=== PATIENT | female | born 1935 | race Caucasian/White ===

== ENCOUNTER 2022-01-12 08:50 | Emergency (ER) | payer MEDICARE, OTHER ==
[~2022-01-12] VITALS: Ht 160 cm; Wt 86.4 kg
[2022-01-12 11:10] VITALS: BP 142/69
[2022-01-12] MEDS ORDERED: DICL20GE TP (11:24)
== END 2022-01-12 11:54 | disposition home or self-care (01) ==
LOC: ER 08:50
DX: M75.22 Bicipital tendinitis, left shoulder (principal); M19.012 Primary osteoarthritis, left shoulder; R20.0 Anesthesia of skin; M25.531 Pain in right wrist; M75.102 Unspecified rotator cuff tear or rupture of left shoulder, not specified as traumatic; Z79.899 Other long term (current) drug therapy
CPT/HCPCS: 29125; 29240; 29260; 73030; 99283

== ENCOUNTER 2022-09-04 09:11 | Inpatient (IN) | payer MEDICARE, OTHER, MEDICAID ==
[~2022-09-04] VITALS: Ht 160 cm; Wt 81.0 kg
[~2022-09-04 09:11] MED LIST: DICL20GE TP
[2022-09-04 09:45] LABS: BASOPHILS # (AUTO) 0.1 X10'3 (0-0.2); BASOPHILS % (AUTO) 0.8 % (0-1); EOSINOPHILS % (AUTO) 0.1 % (0-6); HEMOGLOBIN 10.9 g/dl (12.0-16.0); LYMPHOCYTES # (AUTO) 1.2 X10'3 (1.1-4.8); LYMPHOCYTES % (AUTO) 10.8 % (21-51); MEAN CORPUSCULAR HEMOGLOBIN 32.9 PG (27.0-31.0); MEAN CORPUSCULAR VOLUME 99.6 FL (78-98); MEAN PLATELET VOLUME 7.5 FL (7.4-10.4); MONOCYTES # (AUTO) 0.8 X10'3 (0-0.9); MONOCYTES % (AUTO) 7.9 % (2-12); NEUTROPHILS # (AUTO) 8.6 X10'3 (1.8-7.7); NEUTROPHILS % (AUTO) 80.4 % (42-75); PLATELET COUNT 278 X10'3 (140-440); RED BLOOD COUNT 3.31 X10'6 (4.20-5.60); RED CELL DISTRIBUTION WIDTH 16.6 % (11.5-14.5); WHITE BLOOD COUNT 10.7 X10'3 (4.5-11.0)
[2022-09-04 10:07] LABS: ALANINE AMINOTRANSFERASE 21 U/L (12-78); ALBUMIN 3.7 G/DL (3.4-5.0); ALBUMIN/GLOBULIN RATIO 1.1 (1.1-1.5); ALKALINE PHOSPHATASE 67 IU/L (46-116); ANION GAP 12 (8-16); ASPARTATE AMINO TRANSFERASE 22 U/L (10-37); BILIRUBIN,TOTAL 1.2 MG/DL (0.1-1.0); BLOOD UREA NITROGEN 32 MG/DL (7-18); BUN/CREATININE RATIO 28.1 (6.6-38.0); CALCIUM 9.5 MG/DL (8.5-10.1); CHLORIDE 97 MMOL/L (99-107); CREATININE 1.14 MG/DL (0.40-0.90); GLUCOSE 111 MG/DL (70-104); LIPASE 68 U/L (73-393); POTASSIUM 3.9 MMOL/L (3.5-5.1); SODIUM 138 MMOL/L (135-145); TOTAL CARBON DIOXIDE 29.3 MMOL/L (24-32); TOTAL PROTEIN 7.1 G/DL (6.4-8.2); eGFR 45 ML/MIN
[2022-09-04] MEDS ORDERED: famotidine/PF 10 mg/ml inj IV ONE (10:45)
[2022-09-04] MEDS ORDERED: normal saline 1000ML IV soln IV ONE (10:45)
[2022-09-04] MEDS ORDERED: ondansetron/PF 4mg/2ml inj IV ONE (10:45)
[2022-09-04] MEDS ORDERED: piperacillin/tazo 3.375gm/50ml 50 ML IV ONE (11:55)
[2022-09-04] MEDS ORDERED: LIDOcaine 2% 10ml TOPICAL JELLY (Urojet) MM ONE ×2 (12:05→22:36)
[2022-09-04] MEDS ORDERED: FURO40TA4 PO (12:41)
[2022-09-04] MEDS ORDERED: METO-395 PO (12:41)
[2022-09-04] MEDS ORDERED: POTA10CA45 PO (12:41)
[2022-09-04] MEDS ORDERED: SPIR100T5 PO (12:41)
[2022-09-04] MEDS ORDERED: LORazepam 2 mg/ml vial IV ONE (13:25)
[2022-09-04] MEDS ORDERED: mag hydrox/Alum hydrox/simeth 30ml oral suspension PO PRN (13:30)
[2022-09-04] MEDS ORDERED: acetaminophen 325mg tablet PO PRN ×2 (13:30)
[2022-09-04] MEDS ORDERED: morphine 2 MG/ML inj. syringe IV PRN (13:30)
[2022-09-04] MEDS ORDERED: magnesium hydroxide 30ml (MOM) UD suspension PO PRN (13:30)
[2022-09-04] MEDS: dextrose 5%-1/2 normal saline 1,000 ML IV SCH (14:12)
[2022-09-04] MEDS: docusate sod 100mg capsule PO SCH (19:03)
[2022-09-04] MEDS: morphine 2 MG/ML inj. syringe IV PRN (21:29)
[2022-09-04] MEDS: ondansetron/PF 4mg/2ml inj IV PRN (21:30)
[2022-09-04 21:46] LABS: CLARITY,URINE CLOUDY (Clear); COLOR,URINE YELLOW (Yellow); GLUCOSE, URINE NEGATIVE (Neg); KETONES,URINE 15 mg/dl (Neg); LEUKOCYTE ESTERASE ,URINE NEGATIVE (Neg); NITRITES, URINE NEGATIVE (Neg); OCCULT BLOOD,URINE SMALL (Neg); PROTEIN,URINE NEGATIVE (Neg)
[2022-09-04 21:55] LABS: UA COLLECTION TYPE CLN CATCH MIDSTREAM
[2022-09-04 22:00] LABS: AMORPHOUS URATES 1+; BACTERIA,URINE 3+ /HPF (Neg); MUCUS STRANDS FEW /LPF (Neg); SQUAMOUS EPITHELIAL CELL,UR FEW /LPF (FEW); TRANSITIONAL EPI CELLS,URINE FEW /HPF; URIC ACID CRYSTALS FEW /HPF (NEGATIVE)
[2022-09-05] MEDS: dextrose 5%-1/2 normal saline 1,000 ML IV SCH ×3 (02:50→17:10)
[2022-09-05] MEDS: docusate sod 100mg capsule PO SCH ×2 (07:07→19:26)
[2022-09-05 07:24] VITALS: BP 140/72
[2022-09-05 09:25] LABS: ALBUMIN 2.9 G/DL (3.4-5.0); BLOOD UREA NITROGEN 25 MG/DL (7-18); BUN/CREATININE RATIO 26.6 (6.6-38.0); CALCIUM 8.1 MG/DL (8.5-10.1); CHLORIDE 104 MMOL/L (99-107); CREATININE 0.94 MG/DL (0.40-0.90); GLUCOSE 112 MG/DL (70-104); POTASSIUM 3.4 MMOL/L (3.5-5.1); TOTAL CARBON DIOXIDE 26.7 MMOL/L (24-32); eGFR 56 ML/MIN
[2022-09-05 09:28] LABS: ANION GAP 5 (8-16); SODIUM 136 MMOL/L (135-145)
--- NOTE | 2022-09-05 09:35 | NUR ---
MD aware of low potassium of 3.4 no new orders at this time
[2022-09-05 10:00] VITALS: BP 132/55
[2022-09-05 10:09] LABS: BASOPHILS % (AUTO) 0.6 % (0-1); EOSINOPHILS # (AUTO) 0.1 X10'3 (0-0.9); EOSINOPHILS % (AUTO) 1.7 % (0-6); HEMATOCRIT 28.5 % (35.0-45.0); HEMOGLOBIN 9.6 g/dl (12.0-16.0); LYMPHOCYTES # (AUTO) 0.9 X10'3 (1.1-4.8); LYMPHOCYTES % (AUTO) 12.5 % (21-51); MEAN CORPUSCULAR HEMOGLOBIN 33.6 PG (27.0-31.0); MEAN CORPUSCULAR HGB CONC 33.6 g/dL (33.0-36.5); MEAN CORPUSCULAR VOLUME 99.9 FL (78-98); MEAN PLATELET VOLUME 7.2 FL (7.4-10.4); MONOCYTES # (AUTO) 0.9 X10'3 (0-0.9); MONOCYTES % (AUTO) 11.7 % (2-12); NEUTROPHILS # (AUTO) 5.5 X10'3 (1.8-7.7); NEUTROPHILS % (AUTO) 73.5 % (42-75); PLATELET COUNT 205 X10'3 (140-440); RED BLOOD COUNT 2.85 X10'6 (4.20-5.60); RED CELL DISTRIBUTION WIDTH 16.5 % (11.5-14.5); WHITE BLOOD COUNT 7.5 X10'3 (4.5-11.0)
--- NOTE | 2022-09-05 16:18 | NUR ---
Malnutrition consult: Pt unsure of wt loss though with decreased appetite per malnutrition risk screen with RN. Multiple attempted visits with pt at bedside however pt sleeping. Per EMR pt with documented wt h/o 86.36 kg 01/12/22 though no documentation of how wt was obtained. Current scaled wt is 81 kg. If previous wt hx in accurate this would be non-significant wt loss of 6% in 8 months. Pt currently NPO with an NGT in place for low continuous suction. No visible fat or muscle wasting appreciated during attempted visits. Pt with no documented decrease in muscle strength and with bilat gen 2+ mild edema. Pt currently lacks a minimum of two criteria for malnutrition. Will continue to follow and further monitor qualifying criteria for malnutrition. Addendum: 09/05/22 at [address] Amended: Links added.
[2022-09-05 18:00] VITALS: BP 127/42
--- NOTE | 2022-09-05 18:10 | NUR ---
Problems reprioritized. Patient report given, questions answered & plan of care reviewed with Rosario TOVAR.
[2022-09-05] MEDS: ondansetron/PF 4mg/2ml inj IV PRN (20:06)
[2022-09-05] MEDS: enoxaparin 40mg/0.4ml syringe SUBCUT SCH (20:06)
[2022-09-05] MEDS: diatr meglu/diatrizoate 30ml oral sol.-(3 dose) bottle PO SCH (21:19)
[2022-09-05 22:00] VITALS: BP 129/46
[2022-09-06 06:00] VITALS: BP 122/67
--- NOTE | 2022-09-06 06:31 | NUR ---
Patient in room [facility]. I have received report from Rosario Posadsa and had the opportunity to ask questions and assume patient care.
[2022-09-06 06:47] LABS: BASOPHILS % (AUTO) 0.7 % (0-1); EOSINOPHILS # (AUTO) 0.2 X10'3 (0-0.9); EOSINOPHILS % (AUTO) 3.7 % (0-6); HEMATOCRIT 29.4 % (35.0-45.0); HEMOGLOBIN 9.7 g/dl (12.0-16.0); LYMPHOCYTES # (AUTO) 1.3 X10'3 (1.1-4.8); LYMPHOCYTES % (AUTO) 19.7 % (21-51); MEAN CORPUSCULAR HGB CONC 32.8 g/dL (33.0-36.5); MEAN CORPUSCULAR VOLUME 100.6 FL (78-98); MEAN PLATELET VOLUME 7.6 FL (7.4-10.4); MONOCYTES # (AUTO) 0.8 X10'3 (0-0.9); MONOCYTES % (AUTO) 12.2 % (2-12); NEUTROPHILS # (AUTO) 4.2 X10'3 (1.8-7.7); NEUTROPHILS % (AUTO) 63.7 % (42-75); PLATELET COUNT 204 X10'3 (140-440); RED BLOOD COUNT 2.92 X10'6 (4.20-5.60); RED CELL DISTRIBUTION WIDTH 16.1 % (11.5-14.5); WHITE BLOOD COUNT 6.6 X10'3 (4.5-11.0)
[2022-09-06] MEDS: dextrose 5%-1/2 normal saline 1,000 ML IV SCH ×2 (06:49→21:04)
[2022-09-06 07:20] LABS: ALBUMIN 2.8 G/DL (3.4-5.0); ANION GAP 4 (8-16); BLOOD UREA NITROGEN 17 MG/DL (7-18); BUN/CREATININE RATIO 18.1 (6.6-38.0); CALCIUM 7.9 MG/DL (8.5-10.1); CHLORIDE 103 MMOL/L (99-107); CREATININE 0.94 MG/DL (0.40-0.90); GLUCOSE 106 MG/DL (70-104); POTASSIUM 3.1 MMOL/L (3.5-5.1); SODIUM 136 MMOL/L (135-145); eGFR 56 ML/MIN
[2022-09-06] MEDS: diatr meglu/diatrizoate 30ml oral sol.-(3 dose) bottle PO SCH ×2 (07:20→09:27)
[2022-09-06] MEDS: docusate sod 100mg capsule PO SCH ×2 (08:00→19:45)
[2022-09-06] MEDS ORDERED: potassium Cl 40MEQ/1/2NS 520ml 520 ML IV SCH (10:00)
[2022-09-06] MEDS ORDERED: potassium Cl 40MEQ/1/2NS 520ml 520 ML IV ONE (10:12)
[2022-09-06 11:00] VITALS: BP 132/72
[2022-09-06 18:00] VITALS: BP 121/76
--- NOTE | 2022-09-06 18:22 | NUR ---
Problems reprioritized. Patient report given, questions answered & plan of care reviewed with Rosario Posadas
[2022-09-06] MEDS: enoxaparin 40mg/0.4ml syringe SUBCUT SCH (21:01)
[2022-09-06 22:00] VITALS: BP 104/77
[2022-09-07] MEDS: dextrose 5%-1/2 normal saline 1,000 ML IV SCH ×2 (04:04→22:29)
[2022-09-07 05:00] VITALS: BP 132/66
[2022-09-07 06:22] LABS: ALBUMIN 2.7 G/DL (3.4-5.0); ANION GAP 3 (8-16); BLOOD UREA NITROGEN 14 MG/DL (7-18); BUN/CREATININE RATIO 15.9 (6.6-38.0); CALCIUM 8.3 MG/DL (8.5-10.1); CHLORIDE 102 MMOL/L (99-107); CREATININE 0.88 MG/DL (0.40-0.90); GLUCOSE 104 MG/DL (70-104); POTASSIUM 3.3 MMOL/L (3.5-5.1); SODIUM 137 MMOL/L (135-145); TOTAL CARBON DIOXIDE 31.7 MMOL/L (24-32); eGFR 61 ML/MIN
[2022-09-07 06:28] LABS: BASOPHILS % (AUTO) 0.7 % (0-1); EOSINOPHILS # (AUTO) 0.2 X10'3 (0-0.9); EOSINOPHILS % (AUTO) 3.2 % (0-6); HEMOGLOBIN 9.5 g/dl (12.0-16.0); LYMPHOCYTES # (AUTO) 1.3 X10'3 (1.1-4.8); LYMPHOCYTES % (AUTO) 21.3 % (21-51); MEAN CORPUSCULAR HEMOGLOBIN 32.8 PG (27.0-31.0); MEAN CORPUSCULAR HGB CONC 32.6 g/dL (33.0-36.5); MEAN CORPUSCULAR VOLUME 100.7 FL (78-98); MEAN PLATELET VOLUME 7.6 FL (7.4-10.4); MONOCYTES # (AUTO) 0.7 X10'3 (0-0.9); NEUTROPHILS # (AUTO) 3.8 X10'3 (1.8-7.7); NEUTROPHILS % (AUTO) 62.8 % (42-75); PLATELET COUNT 201 X10'3 (140-440); RED BLOOD COUNT 2.88 X10'6 (4.20-5.60); RED CELL DISTRIBUTION WIDTH 16.1 % (11.5-14.5); WHITE BLOOD COUNT 6.1 X10'3 (4.5-11.0)
--- NOTE | 2022-09-07 06:47 | NUR ---
Patient in room [facility]. I have received report from Rosario Posadas and had the opportunity to ask questions and assume patient care.
[2022-09-07] MEDS: docusate sod 100mg capsule PO SCH ×2 (08:00→21:02)
[2022-09-07 11:00] VITALS: BP 128/62
[2022-09-07] MEDS ORDERED: potassium Cl 20 mEq SR tablet PO PRN ×2 (11:30)
[2022-09-07] MEDS ORDERED: potassium Cl 40MEQ/1/2NS 520ml 520 ML IV PRN (11:30)
[2022-09-07] MEDS ORDERED: magnesium Cl slow-release 64mg tablet PO PRN (11:30)
[2022-09-07] MEDS ORDERED: magnesium 4gm in 100ml NS 100 ML IV PRN (11:30)
[2022-09-07] MEDS ORDERED: potassium Cl 40MEQ/1/2NS 520ml 520 ML IV ONE (11:40)
[2022-09-07 17:41] VITALS: BP_SYST 128; BP_SYST 141; BP_DIAS 59; BP_DIAS 74
[2022-09-07 18:00] VITALS: BP 128/74
--- NOTE | 2022-09-07 18:31 | NUR ---
Problems reprioritized. Patient report given, questions answered & plan of care reviewed with Sonia.
[2022-09-07] MEDS: enoxaparin 40mg/0.4ml syringe SUBCUT SCH (20:00)
[2022-09-07] MEDS: K and/or MAG REPLACEMENT MC SCH (20:00)
[2022-09-07] MEDS: diatr meglu/diatrizoate 30ml oral sol.-(3 dose) bottle PO SCH (23:14)
[2022-09-08 05:30] VITALS: BP 139/76
--- NOTE | 2022-09-08 06:10 | NUR ---
Patient in room [facility]. I have received report from GUY Scott and had the opportunity to ask questions and assume patient care.
--- NOTE | 2022-09-08 06:15 | NUR ---
Problems reprioritized. Patient report given, questions answered & plan of care reviewed with Cat TOVAR. Addendum: 09/08/22 at 0615 by Sonia Monteiro RN Amended: Links added.
[2022-09-08 07:07] LABS: BASOPHILS % (AUTO) 0.5 % (0-1); EOSINOPHILS # (AUTO) 0.1 X10'3 (0-0.9); EOSINOPHILS % (AUTO) 1.4 % (0-6); HEMATOCRIT 31.4 % (35.0-45.0); HEMOGLOBIN 10.5 g/dl (12.0-16.0); LYMPHOCYTES # (AUTO) 1.2 X10'3 (1.1-4.8); LYMPHOCYTES % (AUTO) 13.3 % (21-51); MEAN CORPUSCULAR HEMOGLOBIN 33.3 PG (27.0-31.0); MEAN CORPUSCULAR HGB CONC 33.5 g/dL (33.0-36.5); MEAN CORPUSCULAR VOLUME 99.6 FL (78-98); MONOCYTES # (AUTO) 0.8 X10'3 (0-0.9); MONOCYTES % (AUTO) 8.3 % (2-12); NEUTROPHILS # (AUTO) 7.1 X10'3 (1.8-7.7); NEUTROPHILS % (AUTO) 76.5 % (42-75); PLATELET COUNT 209 X10'3 (140-440); RED BLOOD COUNT 3.15 X10'6 (4.20-5.60); RED CELL DISTRIBUTION WIDTH 15.8 % (11.5-14.5); WHITE BLOOD COUNT 9.3 X10'3 (4.5-11.0)
[2022-09-08 07:21] LABS: ALBUMIN 2.9 G/DL (3.4-5.0); ANION GAP 4 (8-16); BLOOD UREA NITROGEN 13 MG/DL (7-18); BUN/CREATININE RATIO 15.5 (6.6-38.0); CALCIUM 8.3 MG/DL (8.5-10.1); CHLORIDE 100 MMOL/L (99-107); CREATININE 0.84 MG/DL (0.40-0.90); GLUCOSE 112 MG/DL (70-104); POTASSIUM 3.5 MMOL/L (3.5-5.1); SODIUM 137 MMOL/L (135-145); TOTAL CARBON DIOXIDE 33.3 MMOL/L (24-32); eGFR 64 ML/MIN
[2022-09-08] MEDS: docusate sod 100mg capsule PO SCH ×2 (07:51→19:55)
[2022-09-08] MEDS: K and/or MAG REPLACEMENT MC SCH ×2 (07:51→19:54)
[2022-09-08] MEDS: diatr meglu/diatrizoate 30ml oral sol.-(3 dose) bottle PO SCH ×2 (08:23→10:21)
[2022-09-08] MEDS: ondansetron/PF 4mg/2ml inj IV PRN (08:25)
[2022-09-08 09:19] LABS: ANISOCYTOSIS 1+; PLATELET ESTIMATE NORMAL
[2022-09-08 09:20] LABS: POLYCHROMASIA FEW; SCHISTOCYTES FEW
[2022-09-08 10:00] VITALS: BP 133/76
[2022-09-08] MEDS: dextrose 5%-1/2 normal saline 1,000 ML IV SCH (10:54)
[2022-09-08 18:00] VITALS: BP 132/73
--- NOTE | 2022-09-08 18:20 | NUR ---
Problems reprioritized. Patient report given, questions answered & plan of care reviewed with GUY Scott.
[2022-09-08] MEDS: enoxaparin 40mg/0.4ml syringe SUBCUT SCH (19:55)
[2022-09-08 22:00] VITALS: BP 128/59
[2022-09-09] VITALS (18 sets, daily range): BP systolic 110–172; BP diastolic 66–97
[2022-09-09] MEDS: dextrose 5%-1/2 normal saline 1,000 ML IV SCH ×3 (00:53→17:03)
--- NOTE | 2022-09-09 06:08 | NUR ---
Problems reprioritized. Patient report given, questions answered & plan of care reviewed with Cat TOVAR. Addendum: 09/09/22 at 0608 by Sonia Monteiro RN Amended: Links added.
--- NOTE | 2022-09-09 06:10 | NUR ---
Patient in room [facility]. I have received report from GUY Scott and had the opportunity to ask questions and assume patient care.
--- NOTE | 2022-09-09 06:20 | NUR ---
Problems reprioritized. Patient report given, questions answered & plan of care reviewed with GUY Scott. Addendum: 09/09/22 at 2024 by Cat Lassiter RN Time is 1820, NOT 0620
[2022-09-09 07:09] LABS: BASOPHILS # (AUTO) 0.1 X10'3 (0-0.2); BASOPHILS % (AUTO) 0.7 % (0-1); EOSINOPHILS # (AUTO) 0.3 X10'3 (0-0.9); HEMATOCRIT 32.1 % (35.0-45.0); HEMOGLOBIN 10.7 g/dl (12.0-16.0); LYMPHOCYTES # (AUTO) 1.5 X10'3 (1.1-4.8); LYMPHOCYTES % (AUTO) 16.3 % (21-51); MEAN CORPUSCULAR HGB CONC 33.3 g/dL (33.0-36.5); MEAN CORPUSCULAR VOLUME 99.3 FL (78-98); MEAN PLATELET VOLUME 7.8 FL (7.4-10.4); MONOCYTES % (AUTO) 10.4 % (2-12); NEUTROPHILS # (AUTO) 6.4 X10'3 (1.8-7.7); NEUTROPHILS % (AUTO) 69.6 % (42-75); PLATELET COUNT 230 X10'3 (140-440); RED BLOOD COUNT 3.24 X10'6 (4.20-5.60); RED CELL DISTRIBUTION WIDTH 15.9 % (11.5-14.5); WHITE BLOOD COUNT 9.2 X10'3 (4.5-11.0)
[2022-09-09 07:15] LABS: ALBUMIN 2.8 G/DL (3.4-5.0); ANION GAP 5 (8-16); BLOOD UREA NITROGEN 11 MG/DL (7-18); BUN/CREATININE RATIO 13.4 (6.6-38.0); CALCIUM 8.3 MG/DL (8.5-10.1); CHLORIDE 98 MMOL/L (99-107); CREATININE 0.82 MG/DL (0.40-0.90); GLUCOSE 105 MG/DL (70-104); POTASSIUM 3.1 MMOL/L (3.5-5.1); SODIUM 138 MMOL/L (135-145); TOTAL CARBON DIOXIDE 34.9 MMOL/L (24-32); eGFR 66 ML/MIN
[2022-09-09] MEDS: docusate sod 100mg capsule PO SCH ×2 (07:16→20:00)
[2022-09-09] MEDS ORDERED: BUPIVAcaine 0.5% inj/PF 30 ML ONE (07:39)
[2022-09-09 07:59] LABS: PRE OP PARTIAL THROMB. TIME 24 SECONDS (22-32)
[2022-09-09] MEDS: K and/or MAG REPLACEMENT MC SCH ×2 (08:00→20:00)
[2022-09-09] MEDS ORDERED: BUPIVACAINE liposomal/PF 13.3 MG/ML vial IM ONE (08:16)
[2022-09-09] MEDS ORDERED: BUPIVAcaine/PF 5 mg/ml 10ml ONE (08:16)
[2022-09-09] MEDS ORDERED: FENTANYL CITRATE/PF 50 MCG/1 ML VIAL ONE (08:17)
[2022-09-09] MEDS ORDERED: sevoflurane 250ml liquid IH ONE (08:30)
[2022-09-09] MEDS ORDERED: metoprolol tartrate 1mg/ml inj IV ONE (08:30)
[2022-09-09] MEDS ORDERED: rocuronium 10mg/ml inj IV ONE ×2 (08:30→09:09)
[2022-09-09] MEDS ORDERED: ceFOXitin 1000 MG inj ONE (09:09)
[2022-09-09] MEDS ORDERED: etomidate 2mg/ml inj. ONE (09:09)
[2022-09-09] MEDS ORDERED: LIDOcaine 2% (20mg/ml) 5ml vial ONE (09:09)
[2022-09-09] MEDS ORDERED: fentaNYL/PF 50MCG/1 ML 2ML syringe ONE (09:21)
[2022-09-09] MEDS ORDERED: BUPIVAcaine 0.5% inj/PF 30 ml vial IJ ONE (09:55)
--- NOTE | 2022-09-09 10:05 | NUR ---
Initial: Pt admit for SBO, s/p laparoscopic incisional hernia repair today. Pt has been NPO throughout LOS, with an NGT in place documented with 1850 mL output 09/08. Recommend nutrition support if expected to remain NPO for a few more days as pt now day 5 without nutrition. Noted pt receiving D5-1/2 NS at 75 mL/hr providing 306 kcal/day. LBM 09/03, prior BM 08/29 per EMR. Will continue to follow closely. Recommendations: 1) Advance to regular diet as medically indicated in view of geriatric age 2) Consider nutrition support if unable to advance PO diet, already day 5 NPO 3) Bowel care per physician 4) Weekly scaled weights Addendum: 09/09/22 at [address] Amended: Links added.
[2022-09-09] MEDS ORDERED: sugammadex 200mg/2ml injection IV ONE (11:29)
[2022-09-09] MEDS ORDERED: dexamethasone sod phosphate 4mg/ml inj. ONE (11:29)
[2022-09-09] MEDS ORDERED: ondansetron/PF 4mg/2ml inj ONE (11:29)
[2022-09-09] MEDS ORDERED: ondansetron/PF 4mg/2ml inj IV PRN (11:35)
[2022-09-09] MEDS ORDERED: morphine 2 MG/ML inj. syringe IV PRN (11:35)
[2022-09-09] MEDS ORDERED: HYDROmorphone/PF 0.2 MG/ML SYRINGE IV PRN ×2 (11:35)
[2022-09-09] MEDS ORDERED: ringers solution, lacted 1,000 ML IV SCH (11:35)
[2022-09-09] MEDS ORDERED: acetaminophen 1,000mg/100ml IV 100 ML IV ONE (11:45)
[2022-09-09] MEDS ORDERED: naloxone 0.4 mg/ml inj IV PRN (12:05)
--- NOTE | 2022-09-09 12:05 | NUR ---
Received from OR via , accompanied by Anesthesiologist DR HICKMAN and report given by Anesthesiolgist. PT AWAKE AND ALERT, MOVING EXT X 4, SKIN WARM AND PINK, GENERAL ANESTHESIA AND TAP BLOCK, 4 LARGE BA'S ON ABD CD, ART LINE RIGHT RADIAL, PIC LEFT AC 20G SALINE LOCK, PIV RIGHT FA 20G LR 100ML/HR, SCD'S, NG BILE COLOR LOW CONT SUCTION.
[2022-09-09 12:24] LABS: ISTAT CREATININE 0.8 mg/dL (0.6-1.1); ISTAT HGB 11.2 g/dl (12.0-16.0); ISTAT IONIZED CALCIUM 1.02 mmol/L (1.03-1.32); ISTAT K 3.5 mmol/L (3.5-5.1); POC BUN/CREATININE RATIO 12.5 (6.6-38.0)
[2022-09-09] MEDS: morphine 2 MG/ML inj. syringe IV PRN ×2 (12:26→12:56)
--- NOTE | 2022-09-09 12:50 | NUR ---
Received report from [employer] ARCHITECTRosario
--- NOTE | 2022-09-09 12:57 | NUR ---
Report called to receiving nurse. Transferred via [facility] . Special Issues communicated to receiving nurse MARY KATE RN. PT IS SLEEPY BUT WAKES TO VOICE, SKIN WARM AND PINK, BA'S ON ABD CD, SAMUEL TO GRAVITY, PIV X 2 PATENT, NG TUBE TO LOW CONT WITH BILE COLORED DRAINAGE, ART LINE D/PRASAD, PAIN MANAGED WITH IV PAIN MEDICATION. PT MEETS DISCHARGE CRITERIA.
[2022-09-09] MEDS: HYDROcodone/acetaminophen 5mg/325mg tablet PO PRN ×2 (15:08→20:00)
[2022-09-09] MEDS: ondansetron/PF 4mg/2ml inj IV PRN (15:09)
[2022-09-09] MEDS: ceFOXitin inj 1,000 MG in normal saline 100ml IV soln 100 ML IV SCH (16:07)
[2022-09-09] MEDS: enoxaparin 40mg/0.4ml syringe SUBCUT SCH (20:00)
[2022-09-10] MEDS: ceFOXitin inj 1,000 MG in normal saline 100ml IV soln 100 ML IV SCH (00:17)
[2022-09-10] MEDS: ondansetron/PF 4mg/2ml inj IV PRN ×3 (00:33→20:28)
[2022-09-10 05:30] VITALS: BP 123/64
--- NOTE | 2022-09-10 06:15 | NUR ---
Patient in room [facility]. I have received report from GUY Scott and had the opportunity to ask questions and assume patient care.
--- NOTE | 2022-09-10 06:16 | NUR ---
Problems reprioritized. Patient report given, questions answered & plan of care reviewed with Cat TOVAR. Addendum: 09/10/22 at 0616 by Sonia Monteiro RN Amended: Links added.
[2022-09-10] MEDS: dextrose 5%-1/2 normal saline 1,000 ML IV SCH (07:05)
[2022-09-10] MEDS: HYDROcodone/acetaminophen 5mg/325mg tablet PO PRN (07:05)
[2022-09-10] MEDS: docusate sod 100mg capsule PO SCH ×2 (08:00→20:00)
[2022-09-10] MEDS ORDERED: morphine 2 MG/ML inj. syringe IV PRN (09:35)
[2022-09-10] MEDS: morphine 2 MG/ML inj. syringe IV PRN ×2 (09:52→15:38)
[2022-09-10 10:17] LABS: BASOPHILS # (AUTO) 0.1 X10'3 (0-0.2); BASOPHILS % (AUTO) 0.6 % (0-1); EOSINOPHILS # (AUTO) 0.1 X10'3 (0-0.9); EOSINOPHILS % (AUTO) 1.3 % (0-6); HEMATOCRIT 30.4 % (35.0-45.0); HEMOGLOBIN 10.1 g/dl (12.0-16.0); LYMPHOCYTES # (AUTO) 1.3 X10'3 (1.1-4.8); MEAN CORPUSCULAR HEMOGLOBIN 33.1 PG (27.0-31.0); MEAN CORPUSCULAR HGB CONC 33.1 g/dL (33.0-36.5); MEAN CORPUSCULAR VOLUME 100.1 FL (78-98); MEAN PLATELET VOLUME 7.9 FL (7.4-10.4); MONOCYTES # (AUTO) 0.9 X10'3 (0-0.9); NEUTROPHILS # (AUTO) 8.1 X10'3 (1.8-7.7); NEUTROPHILS % (AUTO) 77.1 % (42-75); PLATELET COUNT 253 X10'3 (140-440); RED BLOOD COUNT 3.04 X10'6 (4.20-5.60); WHITE BLOOD COUNT 10.5 X10'3 (4.5-11.0)
[2022-09-10] MEDS: metoclopramide 5 mg/ml inj IV PRN (10:24)
[2022-09-10 10:58] LABS: ALANINE AMINOTRANSFERASE 97 U/L (12-78); ALBUMIN 2.4 G/DL (3.4-5.0); ALBUMIN/GLOBULIN RATIO 0.9 (1.1-1.5); ALKALINE PHOSPHATASE 71 IU/L (46-116); ANION GAP 1 (8-16); ASPARTATE AMINO TRANSFERASE 45 U/L (10-37); BILIRUBIN,TOTAL 0.9 MG/DL (0.1-1.0); BLOOD UREA NITROGEN 12 MG/DL (7-18); BUN/CREATININE RATIO 12.1 (6.6-38.0); CALCIUM 7.4 MG/DL (8.5-10.1); CHLORIDE 97 MMOL/L (99-107); CREATININE 0.99 MG/DL (0.40-0.90); GLUCOSE 125 MG/DL (70-104); MAGNESIUM 1.6 MG/DL (1.5-2.4); POTASSIUM 3.2 MMOL/L (3.5-5.1); SODIUM 133 MMOL/L (135-145); TOTAL CARBON DIOXIDE 34.8 MMOL/L (24-32); TOTAL PROTEIN 5.1 G/DL (6.4-8.2); eGFR 53 ML/MIN
[2022-09-10 11:00] VITALS: BP 140/60
[2022-09-10] MEDS: K and/or MAG REPLACEMENT MC SCH ×2 (11:14→20:00)
[2022-09-10] MEDS: potassium Cl 40MEQ/1/2NS 520ml 520 ML IV PRN (11:35)
[2022-09-10 18:00] VITALS: BP 131/47
--- NOTE | 2022-09-10 18:15 | NUR ---
Problems reprioritized. Patient report given, questions answered & plan of care reviewed with GUY Moncada.
[2022-09-10] MEDS: enoxaparin 40mg/0.4ml syringe SUBCUT SCH (20:09)
[2022-09-11] MEDS: dextrose 5%-1/2 normal saline 1,000 ML IV SCH ×3 (01:41→22:01)
--- NOTE | 2022-09-11 02:02 | NUR ---
AGREE WITH CARDIAC MONITOR PHYSICAL ASSESSMENT CHARTED.
[2022-09-11 06:00] VITALS: BP 129/66
[2022-09-11 06:03] LABS: BASOPHILS # (AUTO) 0.1 X10'3 (0-0.2); BASOPHILS % (AUTO) 0.6 % (0-1); EOSINOPHILS # (AUTO) 0.3 X10'3 (0-0.9); HEMATOCRIT 30.7 % (35.0-45.0); HEMOGLOBIN 10.3 g/dl (12.0-16.0); LYMPHOCYTES # (AUTO) 1.5 X10'3 (1.1-4.8); LYMPHOCYTES % (AUTO) 14.8 % (21-51); MEAN CORPUSCULAR HEMOGLOBIN 33.4 PG (27.0-31.0); MEAN CORPUSCULAR HGB CONC 33.6 g/dL (33.0-36.5); MEAN CORPUSCULAR VOLUME 99.7 FL (78-98); MEAN PLATELET VOLUME 7.6 FL (7.4-10.4); MONOCYTES # (AUTO) 1.3 X10'3 (0-0.9); MONOCYTES % (AUTO) 12.6 % (2-12); NEUTROPHILS # (AUTO) 6.9 X10'3 (1.8-7.7); PLATELET COUNT 269 X10'3 (140-440); RED BLOOD COUNT 3.08 X10'6 (4.20-5.60); RED CELL DISTRIBUTION WIDTH 15.9 % (11.5-14.5)
[2022-09-11 06:51] LABS: ALANINE AMINOTRANSFERASE 75 U/L (12-78); ALBUMIN 2.3 G/DL (3.4-5.0); ALBUMIN/GLOBULIN RATIO 0.8 (1.1-1.5); ALKALINE PHOSPHATASE 73 IU/L (46-116); ANION GAP 3 (8-16); ASPARTATE AMINO TRANSFERASE 29 U/L (10-37); BILIRUBIN,TOTAL 0.7 MG/DL (0.1-1.0); BLOOD UREA NITROGEN 11 MG/DL (7-18); BUN/CREATININE RATIO 10.9 (6.6-38.0); CALCIUM 7.6 MG/DL (8.5-10.1); CHLORIDE 96 MMOL/L (99-107); CREATININE 1.01 MG/DL (0.40-0.90); GLUCOSE 119 MG/DL (70-104); MAGNESIUM 1.5 MG/DL (1.5-2.4); POTASSIUM 3.6 MMOL/L (3.5-5.1); SODIUM 133 MMOL/L (135-145); TOTAL CARBON DIOXIDE 33.8 MMOL/L (24-32); TOTAL PROTEIN 5.2 G/DL (6.4-8.2); eGFR 52 ML/MIN
--- NOTE | 2022-09-11 06:52 | NUR ---
Patient in room [facility]. I have received report from Antwan TOVAR and had the opportunity to ask questions and assume patient care.
[2022-09-11] MEDS: K and/or MAG REPLACEMENT MC SCH ×2 (07:25→20:00)
[2022-09-11] MEDS: docusate sod 100mg capsule PO SCH ×2 (08:00→20:00)
[2022-09-11 10:00] VITALS: BP 116/56
--- NOTE | 2022-09-11 18:04 | NUR ---
ALL cares given to patient, NG minimal output, suction and tubing checked. patient is not c/o nausea or vomiting. Family present most of day.
--- NOTE | 2022-09-11 18:18 | NUR ---
Student documentation: I have reviewed and agree with all interventions, assessments performed and documented by Abigail olson.
--- NOTE | 2022-09-11 18:19 | NUR ---
Problems reprioritized. Patient report given, questions answered & plan of care reviewed with Linda TOVAR.
[2022-09-11 18:30] VITALS: BP 121/63
[2022-09-11] MEDS: enoxaparin 40mg/0.4ml syringe SUBCUT SCH (20:08)
[2022-09-11] MEDS: morphine 2 MG/ML inj. syringe IV PRN (20:21)
[2022-09-11 22:00] VITALS: BP 132/61
[2022-09-11] MEDS: ondansetron/PF 4mg/2ml inj IV PRN (22:00)
[2022-09-12] MEDS: morphine 2 MG/ML inj. syringe IV PRN ×2 (03:25→11:29)
[2022-09-12 06:00] VITALS: BP 129/52
--- NOTE | 2022-09-12 06:33 | NUR ---
Patient in room [facility]. I have received report from Linda RN and had the opportunity to ask questions and assume patient care.
[2022-09-12 07:34] LABS: BASOPHILS # (AUTO) 0.1 X10'3 (0-0.2); BASOPHILS % (AUTO) 0.8 % (0-1); EOSINOPHILS # (AUTO) 0.4 X10'3 (0-0.9); EOSINOPHILS % (AUTO) 5.7 % (0-6); HEMATOCRIT 28.5 % (35.0-45.0); HEMOGLOBIN 9.3 g/dl (12.0-16.0); LYMPHOCYTES # (AUTO) 1.1 X10'3 (1.1-4.8); LYMPHOCYTES % (AUTO) 15.5 % (21-51); MEAN CORPUSCULAR HEMOGLOBIN 32.6 PG (27.0-31.0); MEAN CORPUSCULAR HGB CONC 32.6 g/dL (33.0-36.5); MEAN CORPUSCULAR VOLUME 99.9 FL (78-98); MEAN PLATELET VOLUME 7.8 FL (7.4-10.4); MONOCYTES # (AUTO) 0.9 X10'3 (0-0.9); MONOCYTES % (AUTO) 13.3 % (2-12); NEUTROPHILS # (AUTO) 4.6 X10'3 (1.8-7.7); NEUTROPHILS % (AUTO) 64.7 % (42-75); PLATELET COUNT 255 X10'3 (140-440); RED BLOOD COUNT 2.86 X10'6 (4.20-5.60); RED CELL DISTRIBUTION WIDTH 16.3 % (11.5-14.5); WHITE BLOOD COUNT 7.1 X10'3 (4.5-11.0)
[2022-09-12 07:55] LABS: ANION GAP 4 (8-16); BILIRUBIN,TOTAL 0.6 MG/DL (0.1-1.0); BLOOD UREA NITROGEN 11 MG/DL (7-18); BUN/CREATININE RATIO 14.3 (6.6-38.0); CALCIUM 7.5 MG/DL (8.5-10.1); CHLORIDE 96 MMOL/L (99-107); CREATININE 0.77 MG/DL (0.40-0.90); GLUCOSE 107 MG/DL (70-104); MAGNESIUM 1.6 MG/DL (1.5-2.4); POTASSIUM 3.1 MMOL/L (3.5-5.1); SODIUM 131 MMOL/L (135-145); TOTAL CARBON DIOXIDE 31.5 MMOL/L (24-32); TOTAL PROTEIN 4.8 G/DL (6.4-8.2); eGFR 71 ML/MIN
[2022-09-12 07:56] LABS: ALANINE AMINOTRANSFERASE 60 U/L (12-78); ALBUMIN/GLOBULIN RATIO 0.7 (1.1-1.5); ALKALINE PHOSPHATASE 60 IU/L (46-116); ASPARTATE AMINO TRANSFERASE 31 U/L (10-37)
[2022-09-12] MEDS: docusate sod 100mg capsule PO SCH ×2 (08:00→19:57)
[2022-09-12] MEDS: K and/or MAG REPLACEMENT MC SCH ×2 (08:00→20:00)
[2022-09-12] MEDS: potassium Cl 40MEQ/1/2NS 520ml 520 ML IV PRN (10:37)
[2022-09-12 11:00] VITALS: BP 109/57
[2022-09-12] MEDS: ondansetron/PF 4mg/2ml inj IV PRN (11:29)
--- NOTE | 2022-09-12 15:12 | NUR ---
F/u 09/12: Pt NPO initial ~9 days of admit w/ R NG removed today and clear liquids to start tonight per EMR. Still no BM this admit LBM 08/29 per EMR w/ KUB report showing "Several gas-filled distended loops of bowel measuring up to 4.4 cm concerning for early beginning of obstruction or ileus" per EMR. RD d/w RN and mary DAILY recommend TPN given 9 days no nutrition, no BM post-op, and clear liquids not sufficient to meet needs. Pt receiving D5/half NS at 75ml/hr providing additional 306 kcals/day. Given now day 9 no nutrition, mild weakness, and general +1 edema pt meets minimum non-severe malnutrition criteria; MD notified. Recommendations: 1) Advance to regular diet as medically indicated in view of geriatric age 2) IF to remain on restrictive clear liquids; given initial 9 days no nutrition consider supplemental TPN for nutrition repletion. IF TPN via central access; 2:1 Clinimix E 5/20 at 72ml/hr goal w/ separate 100ml 20% ILE to run for 12 hours daily at 8.33ml/hr would provide 1728ml volume/day, 86g AA, 346g DEX (2.96mg/kg/min), and 1720 total kcals. 3) IF PN; TG/PALB Q /; daily scaled wts 4) Bowel care per physician 5) Weekly scaled weights Addendum: 09/12/22 at [address] Amended: Links added.
--- NOTE | 2022-09-12 17:07 | NUR ---
patient appears comfortable seen by Dr Dougherty. NG removed and patient commenced on clear liquid diet. morphine and zofran given for pain and nauseax1. K replaced. Daughter at bedside
[2022-09-12] MEDS: dextrose 5%-1/2 normal saline 1,000 ML IV SCH (17:52)
[2022-09-12 18:30] VITALS: BP 120/54
--- NOTE | 2022-09-12 18:34 | NUR ---
Problems reprioritized. Patient report given, questions answered & plan of care reviewed with Linda TOVAR.
[2022-09-12] MEDS: enoxaparin 40mg/0.4ml syringe SUBCUT SCH (19:58)
[2022-09-12] MEDS ORDERED: enoxaparin 40mg/0.4ml syringe SUBCUT SCH (20:00)
[2022-09-12 22:00] VITALS: BP 122/58
[2022-09-13] MEDS: dextrose 5%-1/2 normal saline 1,000 ML IV SCH (05:56)
[2022-09-13 06:01] LABS: BASOPHILS # (AUTO) 0.1 X10'3 (0-0.2); BASOPHILS % (AUTO) 0.8 % (0-1); EOSINOPHILS # (AUTO) 0.5 X10'3 (0-0.9); EOSINOPHILS % (AUTO) 7.1 % (0-6); HEMATOCRIT 27.4 % (35.0-45.0); HEMOGLOBIN 8.9 g/dl (12.0-16.0); LYMPHOCYTES % (AUTO) 15.3 % (21-51); MEAN CORPUSCULAR HEMOGLOBIN 32.5 PG (27.0-31.0); MEAN CORPUSCULAR HGB CONC 32.6 g/dL (33.0-36.5); MEAN CORPUSCULAR VOLUME 99.7 FL (78-98); MEAN PLATELET VOLUME 7.5 FL (7.4-10.4); MONOCYTES # (AUTO) 0.9 X10'3 (0-0.9); MONOCYTES % (AUTO) 13.9 % (2-12); NEUTROPHILS # (AUTO) 4.1 X10'3 (1.8-7.7); NEUTROPHILS % (AUTO) 62.9 % (42-75); PLATELET COUNT 292 X10'3 (140-440); RED BLOOD COUNT 2.75 X10'6 (4.20-5.60); RED CELL DISTRIBUTION WIDTH 16.1 % (11.5-14.5); WHITE BLOOD COUNT 6.5 X10'3 (4.5-11.0)
[2022-09-13 06:14] LABS: ALANINE AMINOTRANSFERASE 54 U/L (12-78); ALBUMIN 1.9 G/DL (3.4-5.0); ALBUMIN/GLOBULIN RATIO 0.7 (1.1-1.5); ALKALINE PHOSPHATASE 65 IU/L (46-116); ANION GAP 4 (8-16); ASPARTATE AMINO TRANSFERASE 26 U/L (10-37); BILIRUBIN,TOTAL 0.8 MG/DL (0.1-1.0); BLOOD UREA NITROGEN 10 MG/DL (7-18); CALCIUM 7.7 MG/DL (8.5-10.1); CHLORIDE 97 MMOL/L (99-107); CREATININE 0.77 MG/DL (0.40-0.90); GLUCOSE 101 MG/DL (70-104); MAGNESIUM 1.6 MG/DL (1.5-2.4); POTASSIUM 3.6 MMOL/L (3.5-5.1); SODIUM 132 MMOL/L (135-145); TOTAL CARBON DIOXIDE 30.9 MMOL/L (24-32); TOTAL PROTEIN 4.5 G/DL (6.4-8.2); eGFR 71 ML/MIN
[2022-09-13 06:46] VITALS: BP 124/56
[2022-09-13] MEDS: K and/or MAG REPLACEMENT MC SCH ×2 (06:53→20:00)
[2022-09-13] MEDS: docusate sod 100mg capsule PO SCH ×2 (08:00→22:08)
[2022-09-13 10:57] VITALS: BP 114/60
[2022-09-13] MEDS: HYDROcodone/acetaminophen 5mg/325mg tablet PO PRN (14:30)
--- NOTE | 2022-09-13 15:19 | NUR ---
DC F/C, PT TOLERATED WELL. PLACED WICK D/T PT STATES SHE IS INCONT
[2022-09-13 16:45] VITALS: BP 124/63
[2022-09-13] MEDS: ondansetron/PF 4mg/2ml inj IV PRN (16:48)
[2022-09-13 18:30] VITALS: BP 148/66
--- NOTE | 2022-09-13 18:47 | NUR ---
Problems reprioritized. Patient report given, questions answered & plan of care reviewed with ALFIE TOVAR.
[2022-09-13] MEDS: metoprolol succinate 25mg (24-HOUR) SR. Tablet PO SCH (21:30)
[2022-09-13] MEDS: metoclopramide 5 mg/ml inj IV PRN (21:46)
[2022-09-13] MEDS: enoxaparin 40mg/0.4ml syringe SUBCUT SCH (21:47)
[2022-09-13 22:00] VITALS: BP 120/66
[2022-09-14] MEDS: dextrose 5%-1/2 normal saline 1,000 ML IV SCH ×2 (00:40→14:04)
[2022-09-14 06:10] LABS: BASOPHILS # (AUTO) 0.1 X10'3 (0-0.2); BASOPHILS % (AUTO) 0.7 % (0-1); EOSINOPHILS # (AUTO) 0.4 X10'3 (0-0.9); EOSINOPHILS % (AUTO) 3.9 % (0-6); HEMATOCRIT 29.2 % (35.0-45.0); HEMOGLOBIN 9.8 g/dl (12.0-16.0); LYMPHOCYTES # (AUTO) 1.3 X10'3 (1.1-4.8); LYMPHOCYTES % (AUTO) 14.2 % (21-51); MEAN CORPUSCULAR HEMOGLOBIN 33.2 PG (27.0-31.0); MEAN CORPUSCULAR HGB CONC 33.6 g/dL (33.0-36.5); MEAN CORPUSCULAR VOLUME 98.7 FL (78-98); MEAN PLATELET VOLUME 7.8 FL (7.4-10.4); MONOCYTES # (AUTO) 0.9 X10'3 (0-0.9); MONOCYTES % (AUTO) 9.9 % (2-12); NEUTROPHILS # (AUTO) 6.7 X10'3 (1.8-7.7); NEUTROPHILS % (AUTO) 71.3 % (42-75); PLATELET COUNT 344 X10'3 (140-440); RED BLOOD COUNT 2.96 X10'6 (4.20-5.60); WHITE BLOOD COUNT 9.3 X10'3 (4.5-11.0)
[2022-09-14 06:19] LABS: ALANINE AMINOTRANSFERASE 51 U/L (12-78); ALBUMIN 2.1 G/DL (3.4-5.0); ALBUMIN/GLOBULIN RATIO 0.7 (1.1-1.5); ALKALINE PHOSPHATASE 80 IU/L (46-116); ANION GAP 3 (8-16); ASPARTATE AMINO TRANSFERASE 28 U/L (10-37); BILIRUBIN,TOTAL 0.7 MG/DL (0.1-1.0); BLOOD UREA NITROGEN 10 MG/DL (7-18); BUN/CREATININE RATIO 11.4 (6.6-38.0); CALCIUM 7.9 MG/DL (8.5-10.1); CHLORIDE 97 MMOL/L (99-107); CREATININE 0.88 MG/DL (0.40-0.90); GLUCOSE 113 MG/DL (70-104); MAGNESIUM 1.7 MG/DL (1.5-2.4); POTASSIUM 3.3 MMOL/L (3.5-5.1); SODIUM 131 MMOL/L (135-145); TOTAL CARBON DIOXIDE 31.3 MMOL/L (24-32); TOTAL PROTEIN 5.1 G/DL (6.4-8.2); eGFR 61 ML/MIN
--- NOTE | 2022-09-14 06:31 | NUR ---
Patient in room [facility]. I have received report from karina rn and had the opportunity to ask questions and assume patient care.
[2022-09-14 06:59] VITALS: BP 141/71
[2022-09-14 07:00] VITALS: BP 118/63
[2022-09-14] MEDS: metoprolol succinate 25mg (24-HOUR) SR. Tablet PO SCH (07:36)
[2022-09-14] MEDS: furosemide 40mg tablet PO SCH (07:36)
[2022-09-14] MEDS: docusate sod 100mg capsule PO SCH ×2 (07:36→19:37)
[2022-09-14] MEDS: spironolactone 25 MG tablet PO SCH (07:37)
--- NOTE | 2022-09-14 07:38 | NUR ---
PAGED DR LUNA RE: Message: MAGDALENO MANCINI. Quynh 3.3 NEED PROTOCOL ORDER. [facility] [id number] SURG
[2022-09-14] MEDS: metoclopramide 5 mg/ml inj IV PRN ×2 (08:03→19:37)
[2022-09-14] MEDS: K and/or MAG REPLACEMENT MC SCH ×3 (08:11→20:22)
[2022-09-14] MEDS ORDERED: magnesium 4gm in 100ml NS 100 ML IV PRN (08:15)
[2022-09-14] MEDS ORDERED: potassium Cl 40MEQ/1/2NS 520ml 520 ML IV PRN (08:15)
[2022-09-14] MEDS ORDERED: potassium Cl 20 mEq SR tablet PO PRN ×2 (08:15)
[2022-09-14] MEDS ORDERED: magnesium Cl slow-release 64mg tablet PO PRN (08:15)
[2022-09-14] MEDS ORDERED: traMADol 50MG tablet PO PRN (11:00)
[2022-09-14 11:34] VITALS: BP 147/68
--- NOTE | 2022-09-14 12:20 | NUR ---
REPORT GIVEN TO MARY ROSALES, STUDENT NURSE. ALL QUESTIONS ANSWERED AND PLAN OF CARE EXPLAINED. PT RESTING.
[2022-09-14 12:57] VITALS: BP 104/59
--- NOTE | 2022-09-14 14:20 | NUR ---
F/u 09/12: Pt NPO initial ~9 days of admit w/ R NG removed today and clear liquids to start tonight per EMR. Still no BM this admit LBM 08/29 per EMR w/ KUB report showing "Several gas-filled distended loops of bowel measuring up to 4.4 cm concerning for early beginning of obstruction or ileus" per EMR. RD d/w RN and mary DAILY recommend TPN given 9 days no nutrition, no BM post-op, and clear liquids not sufficient to meet needs. Pt receiving D5/half NS at 75ml/hr providing additional 306 kcals/day. Given now day 9 no nutrition, mild weakness, and general +1 edema pt meets minimum non-severe malnutrition criteria; MD notified. Recommendations: 1) Advance to regular diet as medically indicated in view of geriatric age 2) Given 14 days no significant nutrition intake now w/ N/V and refusals of full liquids meals; consider supplemental TPN for nutrition repletion. IF TPN via central access; 2:1 Clinimix E 5/20 at 72ml/hr goal w/ separate 100ml 20% ILE to run for 12 hours daily at 8.33ml/hr would provide 1728ml volume/day, 86g AA, 346g DEX (2.96mg/kg/min), and 1720 total kcals. 3) IF PN; TG/PALB Q /; daily scaled wts 4) Bowel care per physician 5) Weekly scaled weights Addendum: 09/14/22 at [address] Amended: Links added.
--- NOTE | 2022-09-14 15:23 | NUR ---
Pt refused getting out of bed d/t nausea. Pt educated on risks, as well as benefits of getting up. Will continue to monitor.
--- NOTE | 2022-09-14 18:17 | NUR ---
Problems reprioritized. Patient report given, questions answered & plan of care reviewed with kwadwo august.
[2022-09-14] MEDS: enoxaparin 40mg/0.4ml syringe SUBCUT SCH (19:43)
[2022-09-14] MEDS ORDERED: CefTRIAXone/D5W-Rocephin 1gm 50 ML IV SCH (23:00)
[2022-09-15 00:19] VITALS: BP 102/58
[2022-09-15] MEDS: dextrose 5%-1/2 normal saline 1,000 ML IV SCH (03:02)
[2022-09-15 06:00] VITALS: BP 111/40
--- NOTE | 2022-09-15 06:25 | NUR ---
Patient in room [facility]. I have received report from Sonia RN & GUY Rebollar and had the opportunity to ask questions and assume patient care.
--- NOTE | 2022-09-15 06:30 | NUR ---
Problems reprioritized. Patient report given, questions answered & plan of care reviewed with Cat TOVAR. Addendum: 09/15/22 at 0631 by Sonia Monteiro RN Amended: Links added.
[2022-09-15] MEDS: ondansetron/PF 4mg/2ml inj IV PRN (06:49)
[2022-09-15 07:09] LABS: BASOPHILS # (AUTO) 0.1 X10'3 (0-0.2); BASOPHILS % (AUTO) 0.6 % (0-1); EOSINOPHILS # (AUTO) 0.5 X10'3 (0-0.9); EOSINOPHILS % (AUTO) 5.8 % (0-6); HEMATOCRIT 27.2 % (35.0-45.0); HEMOGLOBIN 9.3 g/dl (12.0-16.0); LYMPHOCYTES # (AUTO) 1.1 X10'3 (1.1-4.8); LYMPHOCYTES % (AUTO) 12.9 % (21-51); MEAN CORPUSCULAR HEMOGLOBIN 33.5 PG (27.0-31.0); MEAN CORPUSCULAR VOLUME 98.5 FL (78-98); MEAN PLATELET VOLUME 7.5 FL (7.4-10.4); MONOCYTES # (AUTO) 1.1 X10'3 (0-0.9); NEUTROPHILS # (AUTO) 5.9 X10'3 (1.8-7.7); NEUTROPHILS % (AUTO) 67.7 % (42-75); PLATELET COUNT 351 X10'3 (140-440); RED BLOOD COUNT 2.76 X10'6 (4.20-5.60); RED CELL DISTRIBUTION WIDTH 16.3 % (11.5-14.5); WHITE BLOOD COUNT 8.8 X10'3 (4.5-11.0)
[2022-09-15 07:15] LABS: ALANINE AMINOTRANSFERASE 41 U/L (12-78); ALBUMIN/GLOBULIN RATIO 0.7 (1.1-1.5); ALKALINE PHOSPHATASE 66 IU/L (46-116); ANION GAP 3 (8-16); ASPARTATE AMINO TRANSFERASE 24 U/L (10-37); BILIRUBIN,TOTAL 0.5 MG/DL (0.1-1.0); BLOOD UREA NITROGEN 8 MG/DL (7-18); BUN/CREATININE RATIO 9.9 (6.6-38.0); CALCIUM 8.2 MG/DL (8.5-10.1); CHLORIDE 97 MMOL/L (99-107); CREATININE 0.81 MG/DL (0.40-0.90); GLUCOSE 106 MG/DL (70-104); MAGNESIUM 1.6 MG/DL (1.5-2.4); POTASSIUM 3.3 MMOL/L (3.5-5.1); SODIUM 131 MMOL/L (135-145); TOTAL PROTEIN 4.8 G/DL (6.4-8.2); eGFR 67 ML/MIN
[2022-09-15] MEDS: K and/or MAG REPLACEMENT MC SCH ×2 (08:22→08:25)
[2022-09-15] MEDS: docusate sod 100mg capsule PO SCH (09:29)
[2022-09-15] MEDS: spironolactone 25 MG tablet PO SCH (09:30)
[2022-09-15] MEDS: furosemide 40mg tablet PO SCH (09:34)
[2022-09-15] MEDS: metoprolol succinate 25mg (24-HOUR) SR. Tablet PO SCH (09:34)
[2022-09-15] MEDS: metoclopramide 5 mg/ml inj IV PRN (09:38)
[2022-09-15 09:45] LABS: ANISOCYTOSIS 1+; PLATELET ESTIMATE NORMAL
[2022-09-15 09:46] LABS: POLYCHROMASIA FEW
[2022-09-15 10:00] VITALS: BP 99/44
--- NOTE | 2022-09-15 10:10 | NUR ---
Problems reprioritized. Patient report given, questions answered & plan of care reviewed with GUY Sutton.
== END 2022-09-15 12:49 | DRG 335 ==
LOC: ER 09:11 → ED HOLD 13:31 → SUR 3N 09-05 07:15
PROVIDERS: ADMIT Internal Medicine; ATTEND Internal Medicine
PROC: BW211ZZ Computerized Tomography (CT Scan) of Abdomen and Pelvis using Low Osmolar Contrast (ICD-10-PCS; 2022-09-08)
PROC: 8E0W4CZ Robotic Assisted Procedure of Trunk Region, Percutaneous Endoscopic Approach (ICD-10-PCS; 2022-09-08)
PROC: 0WUF4JZ Supplement Abdominal Wall with Synthetic Substitute, Percutaneous Endoscopic Approach (ICD-10-PCS; 2022-09-09)
PROC: 0DN84ZZ Release Small Intestine, Percutaneous Endoscopic Approach (ICD-10-PCS; principal; 2022-09-09 08:30)
DX: K43.0 Incisional hernia with obstruction, without gangrene (principal); I50.31 Acute diastolic (congestive) heart failure; E87.1 Hypo-osmolality and hyponatremia; N39.0 Urinary tract infection, site not specified; I27.81 Cor pulmonale (chronic); K66.0 Peritoneal adhesions (postprocedural) (postinfection); N28.1 Cyst of kidney, acquired; I11.0 Hypertensive heart disease with heart failure; Z20.822 Contact with and (suspected) exposure to COVID-19; I25.10 Atherosclerotic heart disease of native coronary artery without angina pectoris; I48.91 Unspecified atrial fibrillation; Z90.710 Acquired absence of both cervix and uterus; I25.2 Old myocardial infarction; Z95.1 Presence of aortocoronary bypass graft; Z90.49 Acquired absence of other specified parts of digestive tract; Z95.2 Presence of prosthetic heart valve; D50.9 Iron deficiency anemia, unspecified
CPT/HCPCS: 36415; 71045; 74018; 74176; 80047; 80048; 80053; 81001; 82948; 83605; 83690; 83735; 83880; 84132; 84145; 84484; 85008; 85025; 85610; 85730; 87040; 87088; 87502; 87503; 88300; 93005; 93306; 97161; 97530; 99285; A4215; A4615; A4618; A6258; C1758; C1781; C9290; G0378; J0131; J0694; J0696; J1100; J1650; J2060; J2270; J2405; J2543; J2765; J3010; J3480; J3490; J7030; J7040; J7042; Q9963; S0020